=== PATIENT | female | born 1975 | race Caucasian/White ===

== ENCOUNTER 2016-04-19 16:41 | Emergency (ER) | payer MEDICAID ==
--- NOTE | 2016-04-21 09:12 | ER ---
ADMIT: 04/19/2016 RM/LOC: ER [facility] MR#: [id number] [address] [address] [facility] [address] [place] [address] Emergency Room Report SEX: F AGE: 40 : 1975 DATE: 04/19/2016 ADDENDUM: CHIEF COMPLAINT: Abdominal pain. HISTORY OF PRESENT ILLNESS: This is a 40-year-old who had sudden onset of abdominal pain within 20 minutes, come into the ER. She has known abdominal hernia that she has already had repaired, was sticking out. She was having excruciating pain. So came into the ER. I was able to reduce after giving her 2 mg of Dilaudid, read the CT scan, there is partial bowel felt sticking threw but is not strangulated or incarcerated. At this time, she is willing to go home. Her pain is completely resolved. I gave her instructions of how to reduce the hernia as needed. If she is not able to reduce, she is to return the ER. Otherwise, I told her to follow up with her surgeon this week. CLINICAL IMPRESSION: Abdominal hernia, reduced while in ER. HOA Prasad / Daryl Lockhart MD / raúl JOB #: [id number] CC: Daryl Lockhart MD, Attending Physician UNKNOWN, Family Physician
== END 2016-04-19 20:05 | disposition home or self-care (01) ==
LOC: ER 16:41
DX: K46.9 Unspecified abdominal hernia without obstruction or gangrene (principal); F17.210 Nicotine dependence, cigarettes, uncomplicated; Z88.0 Allergy status to penicillin

== ENCOUNTER 2016-05-07 12:09 | Emergency (ER) | payer MEDICAID ==
--- NOTE | 2016-05-10 13:18 | ER ---
ADMIT: 05/07/2016 RM/LOC: ER [facility] MR#: [id number] [address] [facility] [address] [place] [address] Emergency Room Report SEX: F AGE: 40 : 1975 DATE: 05/07/2016 HISTORY OF PRESENT ILLNESS: The patient is a 40-year-old obese female, presents to the emergency room complaining of premenstrual syndrome, vaginal bleed, for 3 weeks now. She also has nausea, vomiting, and diarrhea. She was recently in the ER, two weeks ago, had a CT done that showed a cyst in the right ovary, and she says there is something wrong with her abdomen. She also has a diagnosis of hernia that had been pushed back or reduced last time she was in the ER. At this point, I reviewed the CT scan done last time. Did a UA, blood work, which indicated a white count of 12.6, but no infection present. She did not have psoas or Rovsing sign. Bowel sounds were normal. Abdomen is soft, only tender in the pubic area. She was given Zofran that helped with her nausea. I did do a transabdominal ultrasound that showed a cyst, but nothing else. The patient is encouraged to follow up with primary provider. Zofran given. DIAGNOSES: 1. Right ovarian cyst. 2. Menorrhagia. 3. Abdominal pain. 4. Nausea. 5. Vomiting. 6. Diarrhea. HOA Bird / Aashish Mckeon MD / jenniferl JOB #: [id number] CC: Aashish Mckeon MD, Attending Physician
== END 2016-05-07 18:09 | disposition home or self-care (01) ==
LOC: ER 12:09
DX: N83.201 Unspecified ovarian cyst, right side (principal); N92.0 Excessive and frequent menstruation with regular cycle; R19.7 Diarrhea, unspecified; Z88.0 Allergy status to penicillin; Z88.5 Allergy status to narcotic agent; Z79.899 Other long term (current) drug therapy

== ENCOUNTER 2016-05-31 16:07 | Emergency (ER) | payer MEDICAID ==
--- NOTE | 2016-06-03 18:24 | ER ---
ADMIT: 05/31/2016 RM/LOC: ER [facility] MR#: [id number] [address] [facility] [address] [place] [id number] Emergency Room Report SEX: F AGE: 40 : 1975 DATE: 05/31/2016 HISTORY OF PRESENT ILLNESS: The patient is a 40-year-old presents to emergency room with vaginal bleeding. She has been extensively studied for abnormal vaginal bleeding with clots. She was on Provera and was taken off the Provera because of biopsy. She states that this has been going on for 3 days and she is just unable to even get up and get out of bed due to bleed she is having. PAST MEDICAL HISTORY: Hypertension, hernia repair, cholecystectomy. ALLERGIES: PENICILLIN. PHYSICAL EXAMINATION: GENERAL: She is extremely large female. Mildly anxious. at bedside. VITAL SIGNS: Blood pressure 160/73 with a heart rate of 80, respirations 16, temp is 96.8, O2 sats 96%. MUSCULOSKELETAL: Suprapubic tenderness. No lumbosacral discomfort. VAGINAL EXAM/PELVIC EXAM: Active bleeding, [id number]-we-[id number] blood clots in the vaginal vault. NECK: Supple. RESPIRATIONS: No distress. EXTREMITIES: Nontender. SKIN: Good color. NEUROLOGIC: Oriented x4. CLINICAL IMPRESSION: 1. Dysfunctional uterine bleeding. 2. Menorrhea. I spoke with Dr. Magana, who suggested to go ahead and get her restarted on the Provera 10 mg for 7 days and have her follow up with her provider, Dr. Ramandeep Mao. Her white count was 11.8 with a normal hemoglobin of 14.2, hematocrit 44.5, platelet count is 299. No other test was done as she says she was at the doctor's office and they did draw blood 2 days ago. Her biopsy is to rule out the cause of her dysfunctional uterine bleed. Depo-Provera prescription given. Start dose in ER. Patient to follow up with PCP. HOA Bird / Aashish Mckeon MD / raúl JOB #: [id number] CC: Aashish Mckeon MD, Attending Physician Sammie Mao, Family Physician
== END 2016-05-31 19:09 | disposition home or self-care (01) ==
LOC: ER 16:07
DX: N93.8 Other specified abnormal uterine and vaginal bleeding (principal); N91.2 Amenorrhea, unspecified; I10 Essential (primary) hypertension; Z88.0 Allergy status to penicillin; Z90.49 Acquired absence of other specified parts of digestive tract